=== PATIENT | female | born 1945 | race Caucasian/White ===

== ENCOUNTER 2019-01-09 07:32 | Inpatient (IN) | payer BC ==
[~2019-01-09] VITALS: Ht 165.1 cm; Wt 52.6 kg
[2019-01-09] MEDS ORDERED: IV NS 0.9% 1,000 ML BAG IV ONE (08:00)
[2019-01-09] MEDS ORDERED: ONDANSETRON HCL/PF 4 MG/2 ML VIAL IVP ONE (08:00)
[2019-01-09 08:02] LABS: BASOPHILS % (AUTO) 0.1 % (0.0-2.0); EOSINOPHILS % (AUTO) 0.1 % (0.0-6.0); HEMATOCRIT 43 % (33-45); HEMOGLOBIN 14.1 g/dL (11.5-14.8); LYMPHOCYTES # (AUTO) 0.2 /CMM (0.8-4.8); LYMPHOCYTES % (AUTO) 1.3 % (20.0-44.0); MEAN CORPUSCULAR HGB CONC 33 g/dl (31.0-36.0); MEAN CORPUSCULAR VOLUME 94 fL (82-100); MONOCYTES # (AUTO) 0.9 /CMM (0.1-1.30); NEUTROPHILS # (AUTO) 17.7 /CMM (1.8-8.9); NEUTROPHILS % (AUTO) 93.5 % (43.0-81.0); PLATELET COUNT (AUTO) 282 /CMM (150-450); RED BLOOD CELL COUNT(AUTO) 4.57 MIL/uL (4.0-5.2)
[2019-01-09 08:05] LABS: CALCIUM, SERUM 9.1 mg/dL (8.5-10.1); CARBON DIOXIDE 31 mmol/L (21-32); CHLORIDE 106 mmol/L (98-107); CREATININE 0.9 mg/dL (0.6-1.3); GLUCOSE 156 mg/dL (74-106); POTASSIUM 4.3 mmol/L (3.5-5.1); SODIUM SERUM 143 mmol/L (136-145); UREA NITROGEN, BLOOD 16 mg/dL (7-18)
[2019-01-09 08:11] LABS: ALANINE AMINOTRANSFERASE 33 U/L (12-78); ALBUMIN 3.8 g/dL (3.4-5.0); ALKALINE PHOSPHATASE 77 U/L (46-116); ASPARTATE AMINOTRANSFERASE 29 U/L (15-37); BILIRUBIN,DIRECT 0.1 mg/dL (0.0-0.2); BILIRUBIN,TOTAL 0.4 mg/dL (0.2-1.0); LIPASE 131 U/L (73-393); TOTAL PROTEIN, SERUM 7.3 g/dL (6.4-8.2)
--- NOTE | 2019-01-09 08:28 | NUR ---
PATIENT ARRIVED AT UNIT AMBULATORY. WITH C/O HAVING CONSTIPATION X 1 WEEK, REPORTED SHE TOOK STOOL SOFTENER AND HAD DIARRHEA X 2 DAYS SINCE THEN. A&O X 3, NO ACUTE DISTRESS. WILL CONTINUE TO MONITOR
[2019-01-09] MEDS ORDERED: FLAGYL/NS RTU 500 MG/100 ML PIGGYBACK IV ONE (08:30)
[2019-01-09] MEDS ORDERED: LEVOFLOXACIN 750 MG /D5W 150ML PIGGYBACK IV ONE (08:30)
[2019-01-09] MEDS ORDERED: ONDANSETRON HCL/PF 4 MG/2 ML VIAL ONE (08:44)
[2019-01-09] MEDS ORDERED: METRONIDAZOLE 500MG/ NS 100ML 100 ML IV ONE (08:51)
[2019-01-09] MEDS ORDERED: LEVOFLOXACIN 750 MG /D5W 150ML 150 ML IV ONE (08:51)
--- NOTE | 2019-01-09 09:03 | NUR ---
Paged Dr. To for admission
[2019-01-09] MEDS ORDERED: POLY17PO4 PO (09:06)
[2019-01-09] MEDS ORDERED: ASPI-1152 PO (09:06)
[2019-01-09] MEDS ORDERED: ATOR10TA PO (09:06)
[2019-01-09] MEDS ORDERED: CHOL100044 PO (09:06)
[2019-01-09] MEDS ORDERED: SENN-168 PO (09:06)
--- NOTE | 2019-01-09 09:33 | NUR ---
Paged Dr. To for admission
--- NOTE | 2019-01-09 10:06 | NUR ---
STOOL COLLECTED AND SENT TO LAB
--- NOTE | 2019-01-09 10:24 | NUR ---
PLACED CALL TO E2 AND SPOKE TO MERT LUQUE FOR [facility]
--- NOTE | 2019-01-09 10:42 | NUR ---
PATIENT TRANSFERRED TO [facility] BY [facility] VIA ACLS PROTOCOL. PATIENT ALERT AND OREITNED, NO ACUTE DISTRESS.
--- NOTE | 2019-01-09 10:50 | NUR ---
m/s delinquent account clerk: admission admitted this 73 yr old female pt from [facility] with dx: colitis, constipation, and sepsis. awake, a/ox4 with anxiousness. denies any psychiatric problems. c/o abdominal discomfort. oriented to room and surroundings. encouraged to verbalized feelings. sister at bedside. vss. instructed to call for assistance. will continue to monitor.
[2019-01-09 11:00] VITALS: BP 116/47
[2019-01-09] MEDS: ENOXAPARIN SODIUM 40 MG/0.4 ML DISP.SYRIN SQ SCH (11:30)
[2019-01-09] MEDS ORDERED: Z GUARD REMEDY 2 OZ OINT TP PRN (11:30)
[2019-01-09] MEDS ORDERED: ACETAMINOPHEN 325 MG TABLET PO PRN (11:30)
[2019-01-09] MEDS ORDERED: MAG HYDROX/AL HYDROX/SIMETH 30 ML UDC PO PRN (11:30)
[2019-01-09] MEDS ORDERED: MAGNESIUM HYDROXIDE 30 ML UDC PO PRN (11:30)
[2019-01-09] MEDS ORDERED: ONDANSETRON HCL/PF 4 MG/2 ML VIAL IVP PRN (11:30)
[2019-01-09] MEDS ORDERED: ZOLPIDEM TARTRATE 5 MG TABLET PO PRN (11:30)
[2019-01-09] MEDS ORDERED: HYDROCODONE/APAP 5/325MG 1 EACH TABLET PO PRN (11:30)
--- NOTE | 2019-01-09 12:00 | NUR ---
m/s manager group home: notes pt still with anxiousness. encourage to use the restroom for bowel and bladder, but pt wants to do it in her diaper, stated, "i don't have control at this time." sister remains at bedside. instructed to call for assistance. also offered bsc for bowel and bladder.
[2019-01-09] MEDS: LACTULOSE 10 G/15 ML UDC (PYXIS) PO SCH ×4 (12:05→23:35)
[2019-01-09] MEDS: IV NS 0.9% 1,000 ML IV PRN (12:13)
[2019-01-09] MEDS ORDERED: LEVOFLOXACIN 750 MG /D5W 150ML 750 MG in PREMIX 1 EA IV SCH (13:00)
[2019-01-09] MEDS: METRONIDAZOLE 500MG/ NS 100ML 500 MG in PREMIX 1 EA IV SCH ×3 (13:32→23:46)
--- NOTE | 2019-01-09 14:00 | NUR ---
m/s plaster and stucco worker: notes pt still uses diaper for bowel and bladder despite pt can ambulate without difficulty. incontinent care rendered by staff. encouraged to use bedside commode or the bathroom. sister remains at bedside. will continue to monitor.
--- NOTE | 2019-01-09 16:45 | NUR ---
m/s gas meter repair supervisor: gi consult seen and examined by ina (franklin) with orders. orders acknowledged.
[2019-01-09] MEDS ORDERED: POLYETHYLENE GLYCOL 3350 17 GM POWD.PACK PO PRN (17:00)
--- NOTE | 2019-01-09 18:35 | NUR ---
m/s plastics process hand: notes in bed awake and talking to her family at this time. needs attended. no distress noted. instructed to call for assistance. will continue to monitor.
--- NOTE | 2019-01-09 19:15 | NUR ---
m/s rn advanced: notes report given to erica (rn) for continuity of care.
--- NOTE | 2019-01-09 19:45 | NUR ---
RN NOTES RECEIVED PATIENT AWAKE, ALERT, RESTING COMFORTABLY IN BED, BREATHING EVEN AND NON LABORED, NO SIGNS OF ACUTE, RESPIRATORY DISTRESS NOTED, SAFETY MEASURES IN PLACED, ASPIRATION PRECAUTION OBSERVED, BED IN LOW LOCKED POSITION, IV ACCESS INTACT AND PATENT WITH NS AT 75 ML/HR INFUSING WELL, PATIENT ON CLEAR LIQUID DIET, ALL NEEDS ATTENDED, CALL LIGHT WITHIN EASY REACH, WILL CONTINUE TO MONITOR.
[2019-01-09 20:00] VITALS: BP 118/46
[2019-01-09 20:01] VITALS: BP 118/46
[2019-01-10] MEDS: LACTULOSE 10 G/15 ML UDC (PYXIS) PO SCH ×4 (05:08→23:14)
[2019-01-10] MEDS: METRONIDAZOLE 500MG/ NS 100ML 500 MG in PREMIX 1 EA IV SCH ×4 (05:09→23:13)
--- NOTE | 2019-01-10 05:29 | NUR ---
RN NOTES PATIENT HAD 10 X SMALL, PASTY, SOFT BROWN FREQUENT BOWEL MOVEMENT SINCE THE BEGINNING OF THE SHIFT, USING BEDSIDE COMMODE, ASSISTED FOR SAFETY, ABLE TO REST WITH SHORT INTERVALS, PATIENT IS RESTING AT THIS TIME, DUE MEDS GIVEN, ALL NEEDS ATTENDED, WILL CONTINUE TO MONITOR.
[2019-01-10] MEDS: IV NS 0.9% 1,000 ML IV PRN (06:51)
--- NOTE | 2019-01-10 06:52 | NUR ---
RN NOTES ALL NEEDS ATTENDED AND MET, KEPT CLEAN AND DRY AND COMFORTABLE, ASSISTED TO BEDSIDE COMMODE X 11, FOR SOFT PASTY SMALL TO MEDIUM BOWEL MOVEMENT, SAFETY MEASURES IN PLACED, WILL ENDORSE TO AM NURSE FOR CONTINUITY OF CARE.
--- NOTE | 2019-01-10 07:15 | NUR ---
Lenin RN opening notes Received PT from night nurse. PT is alert and oriented X4. PT complaining of headache. Offered medication for the headache but PT refused. NO pain other than the headache. Respiration is equal, clear and unlabored. IV at R Forearm gauge# 22 intact and infusing well NS 75ml/hr. PT just had a bowel movement. Bed at low position and call light is within reach. Will continue to monitor.
[2019-01-10 07:28] LABS: BASOPHILS % (AUTO) 0.3 % (0.0-2.0); EOSINOPHILS % (AUTO) 0.2 % (0.0-6.0); HEMATOCRIT 39 % (33-45); HEMOGLOBIN 12.7 g/dL (11.5-14.8); LYMPHOCYTES % (AUTO) 8.4 % (20.0-44.0); MEAN CORPUSCULAR HGB CONC 33 g/dl (31.0-36.0); MEAN CORPUSCULAR VOLUME 92 fL (82-100); MONOCYTES # (AUTO) 0.8 /CMM (0.1-1.30); MONOCYTES % (AUTO) 6.8 % (2.0-12.0); NEUTROPHILS % (AUTO) 84.3 % (43.0-81.0); PLATELET COUNT (AUTO) 228 /CMM (150-450); RED BLOOD CELL COUNT(AUTO) 4.18 MIL/uL (4.0-5.2); WHITE BLOOD COUNT (AUTO) 11.8 K/uL (4.3-11.0)
[2019-01-10 07:49] LABS: CALCIUM, SERUM 8.9 mg/dL (8.5-10.1); CARBON DIOXIDE 27 mmol/L (21-32); CHLORIDE 109 mmol/L (98-107); CREATININE 0.8 mg/dL (0.6-1.3); GLUCOSE 113 mg/dL (74-106); MAGNESIUM 2.1 mg/dL (1.8-2.4); PHOSPHORUS 2.8 mg/dL (2.5-4.9); POTASSIUM 3.7 mmol/L (3.5-5.1); SODIUM SERUM 145 mmol/L (136-145); UREA NITROGEN, BLOOD 6 mg/dL (7-18)
[2019-01-10 07:57] LABS: CHOLESTEROL 120 mg/dL (<200); HDL CHOLESTEROL 65 mg/dL (40-60); LDL 49 mg/dL (0-99); THYROID STIMULATING HORMONE 5.801 uIU/mL (0.358-3.74); TRIGLYCERIDES 22 mg/dL (30-150)
[2019-01-10 08:00] VITALS: BP 129/55
[2019-01-10] MEDS: PANTOPRAZOLE 40 MG TABLET.DR PO SCH (08:39)
[2019-01-10] MEDS: ATORVASTATIN 10 MG TABLET PO SCH (08:39)
[2019-01-10] MEDS: ASPIRIN EC 81 MG TABLET.DR PO SCH (08:39)
[2019-01-10] MEDS: ENOXAPARIN SODIUM 40 MG/0.4 ML DISP.SYRIN SQ SCH (08:39)
[2019-01-10] MEDS: CHOLECALCIFEROL 1,000 UNIT TABLET (VIT D3) PO SCH (08:40)
--- NOTE | 2019-01-10 08:55 | NUR ---
NOÉ medsurg notes Pt complaining of headache. Gave acetaminophen for headache. Will continue to monitor
[2019-01-10] MEDS ORDERED: IV NS 0.9% 1,000 ML IV STA (10:10)
--- NOTE | 2019-01-10 13:00 | NUR ---
RN MS NOTES PT IN BED, AWAKE, ALERT AND ORIENTED, NO COMPLAINT OF PAIN, NOT IN DISTRESS, SEEN BY DR. ROBERTO AND ISAMAR LEADLIGHTER, PLAN OF CARE DISCUSSED WITH PT, VERBALIZED UNDERSTANDING, CALL LIGHT WITHIN REACH, ASSISTED WITH TOILETING NEEDS.
[2019-01-10 16:00] VITALS: BP 119/59
--- NOTE | 2019-01-10 18:45 | NUR ---
RN medsurg notes Pt is alert and oriented X4. Pt is resting in bed comfortably. PT denies any pain or discomfort at this time. No vomiting or nausea. PT has episode of BM 6 times, small brown pasty stool. NO SOB. Meds have been given and assist all needs. Pt on clear liquid. Safety precautions is maintained. IV is intact and infusing well. Informed PT about plan of care. PT and pt's family verbalize understanding. Pt family at the bed side. Will endorse to night nurse.
--- NOTE | 2019-01-10 19:00 | NUR ---
MS RN NOTES RECEIVED PT IN BED AWAKE AND ABLE TO MAKE NEEDS KNOWN WITH FAMILY AT BEDSIDE. PT A/O X3. RESPIRATIONS EVEN AND UNLABORED WITH NO S/S OF ACUTE DISTRESS OR SOB NOTED. NO COMPLAINTS OF PAIN AT THIS TIME. RFA #22G RUNNING NS @125ML/HR, PATENT AND INTACT WITH NO S/S OF INFILTRATION NOTED. CALL LIGHT WITHIN REACH. WILL CONTINUE TO MONITOR.
[2019-01-10 20:00] VITALS: BP 136/59
[2019-01-10] MEDS ORDERED: PEG 3350/NA SULF,BICARB,CL/KCL 4,000 ML BOTTLE PO ONE (21:30)
[2019-01-10] MEDS ORDERED: PEG 3350/NA SULF,BICARB,CL/KCL 4,000 ML BOTTLE ONE (22:04)
[2019-01-11] MEDS: IV NS 0.9% 1,000 ML IV PRN (03:47)
[2019-01-11] MEDS: LACTULOSE 10 G/15 ML UDC (PYXIS) PO SCH ×4 (04:53→23:33)
[2019-01-11] MEDS: METRONIDAZOLE 500MG/ NS 100ML 500 MG in PREMIX 1 EA IV SCH ×4 (05:16→23:40)
[2019-01-11 06:35] LABS: BASOPHILS % (AUTO) 0.5 % (0.0-2.0); EOSINOPHILS % (AUTO) 0.9 % (0.0-6.0); HEMATOCRIT 35 % (33-45); HEMOGLOBIN 11.6 g/dL (11.5-14.8); LYMPHOCYTES # (AUTO) 0.9 /CMM (0.8-4.8); LYMPHOCYTES % (AUTO) 13.1 % (20.0-44.0); MEAN CORPUSCULAR HGB CONC 34 g/dl (31.0-36.0); MEAN CORPUSCULAR VOLUME 93 fL (82-100); MONOCYTES # (AUTO) 0.9 /CMM (0.1-1.30); MONOCYTES % (AUTO) 12.9 % (2.0-12.0); NEUTROPHILS # (AUTO) 4.8 /CMM (1.8-8.9); NEUTROPHILS % (AUTO) 72.6 % (43.0-81.0); PLATELET COUNT (AUTO) 203 /CMM (150-450); RED BLOOD CELL COUNT(AUTO) 3.73 MIL/uL (4.0-5.2); WHITE BLOOD COUNT (AUTO) 6.6 K/uL (4.3-11.0)
[2019-01-11 07:20] LABS: CALCIUM, SERUM 8.4 mg/dL (8.5-10.1); CARBON DIOXIDE 25 mmol/L (21-32); CHLORIDE 108 mmol/L (98-107); CREATININE 0.6 mg/dL (0.6-1.3); GLUCOSE 88 mg/dL (74-106); MAGNESIUM 1.8 mg/dL (1.8-2.4); PHOSPHORUS 2.2 mg/dL (2.5-4.9); POTASSIUM 3.3 mmol/L (3.5-5.1); SODIUM SERUM 141 mmol/L (136-145); UREA NITROGEN, BLOOD 3 mg/dL (7-18)
--- NOTE | 2019-01-11 07:33 | NUR ---
MS RN NOTES PT IN BED AWAKE AND ABLE TO MAKE NEEDS KNOWN. PT A/O X3. RESPIRATIONS EVEN AND UNLABORED WITH NO S/S OF ACUTE DISTRESS OR SOB NOTED THROUGHOUT SHIFT. NO COMPLAINTS OF PAIN AT THIS TIME. LHAND #22G RUNNING NS @125ML/HR, PATENT AND INTACT WITH NO S/S OF INFILTRATION NOTED. PT KEPT CLEAN, DRY, AND COMFORTABLE. SAFETY MEASURES IN PLACE WITH BED IN LOWEST LOCKED POSITION WITH SIDE RAILS UP X2. CALL LIGHT WITHIN REACH. WILL ENDORSE TO ON COMING NURSE FOR [facility].
[2019-01-11 08:00] VITALS: BP 115/51
[2019-01-11] MEDS: ENOXAPARIN SODIUM 40 MG/0.4 ML DISP.SYRIN SQ SCH (09:07)
[2019-01-11] MEDS: CHOLECALCIFEROL 1,000 UNIT TABLET (VIT D3) PO SCH (09:08)
[2019-01-11] MEDS: PANTOPRAZOLE 40 MG TABLET.DR PO SCH (09:08)
[2019-01-11] MEDS: ASPIRIN EC 81 MG TABLET.DR PO SCH (09:08)
[2019-01-11] MEDS: ATORVASTATIN 10 MG TABLET PO SCH (09:08)
[2019-01-11] MEDS ORDERED: POTASSIUM CHLORIDE 20 MEQ POWDER PACKET PO SCH (09:30)
--- NOTE | 2019-01-11 09:30 | NUR ---
RN MS NOTES UNABLE TO ADMINISTER KLOR-CON, MED REORDERED.
[2019-01-11] MEDS ORDERED: LEVOFLOXACIN 750 MG /D5W 150ML 750 MG in PREMIX 1 EA IV SCH (10:00)
--- NOTE | 2019-01-11 11:31 | NUR ---
NOÉ CRAFT NOTES THE MEDIC TECHNICIAN ALESIA CAME TO SEE THE PT AND INFORMED THE PT THE IMPORTANT OF ADDING FIBER INTO HER DIET AND STARTS EATING HEALTHY TO PREVENT CONSTIPATION.
[2019-01-11] MEDS ORDERED: POTASSIUM CHLORIDE 20 MEQ POWDER PACKET PO ONE (12:00)
[2019-01-11] MEDS ORDERED: K PHOS NEUTRAL 250 MG TABLET PO ONE (13:30)
--- NOTE | 2019-01-11 13:32 | NUR ---
Lenin UMANZOR notes Thania Davis, MAINSPRING STRIP INSPECTOR came to see the pt. The MAINSPRING STRIP INSPECTOR informed about plan of care and the disease process. MAINSPRING STRIP INSPECTOR also spoke with pt's son by phone. PT and pt's son verbalize understanding.
--- NOTE | 2019-01-11 14:00 | NUR ---
Lenin UMANZOR notes Dr. Espinoza spoke with the PT about plan of care. MD informed the PT to have colonoscopy done as an outpatient. PT and family's verbalize understanding.
[2019-01-11 16:00] VITALS: BP 139/54
--- NOTE | 2019-01-11 18:39 | NUR ---
Medsurg RN notes Pt is alert and oriented X4. Pt is resting in bed comfortably. PT denies any pain or discomfort at this time. No vomiting or nausea. NO SOB. PT still having bowel movement several times thru out the shift. MD aware of that. Meds have been given and assist all needs. Pt on clear liquid. IV is on left hand intact and infusing well. Informed PT about plan of care and explained about medications purposes. PT verbalize understanding. Safety precautions is maintained. Bed at low position and call light within reach. Will endorse to night nurse.
[2019-01-11 20:00] VITALS: BP 126/54
--- NOTE | 2019-01-11 20:00 | NUR ---
MS/RN OPENING NOTES RECEIVED PATIENT IN BED, AWAKE, ALERT X2, SKIN WARM TO TOUCH, CAN FOLLOW SIMPLE COMMANDS BUT REQUIRE FREQUENT REORIENTATION. DISCUSSED PLAN OF CARE AND VERBALIZE UNDERSTANDING, MONITORED AND TO COLLECT STOOL SAMPLE FOR OVA PARASITE, BED LOCKED, CALL LIGHTS WITHIN REACH. WILL MONITOR.
[2019-01-11 20:16] VITALS: BP 126/54
[2019-01-12] MEDS: LACTULOSE 10 G/15 ML UDC (PYXIS) PO SCH ×2 (05:28→11:30)
[2019-01-12] MEDS: METRONIDAZOLE 500MG/ NS 100ML 500 MG in PREMIX 1 EA IV SCH (05:28)
[2019-01-12] MEDS: IV NS 0.9% 1,000 ML IV PRN (05:55)
--- NOTE | 2019-01-12 06:37 | NUR ---
321-1 MS/RN NOTES PATIENT ABLE TO SLEEP INTERMITENTLY, AWAKE, ABLE TO VERBALIZE NEED, USES BED SIDE COMMODE, BED LOCKED, CALL LIGHTS WITHIN REACH. WILL MONITOR.
[2019-01-12 06:45] LABS: CALCIUM, SERUM 8.2 mg/dL (8.5-10.1); CARBON DIOXIDE 22 mmol/L (21-32); CHLORIDE 108 mmol/L (98-107); CREATININE 0.6 mg/dL (0.6-1.3); GLUCOSE 87 mg/dL (74-106); MAGNESIUM 1.7 mg/dL (1.8-2.4); POTASSIUM 3.3 mmol/L (3.5-5.1); SODIUM SERUM 143 mmol/L (136-145); UREA NITROGEN, BLOOD 4 mg/dL (7-18)
[2019-01-12 06:46] LABS: BASOPHILS % (AUTO) 0.6 % (0.0-2.0); EOSINOPHILS % (AUTO) 1.3 % (0.0-6.0); HEMATOCRIT 36 % (33-45); HEMOGLOBIN 12.1 g/dL (11.5-14.8); LYMPHOCYTES # (AUTO) 0.9 /CMM (0.8-4.8); LYMPHOCYTES % (AUTO) 16.8 % (20.0-44.0); MEAN CORPUSCULAR HGB CONC 33 g/dl (31.0-36.0); MEAN CORPUSCULAR VOLUME 92 fL (82-100); MONOCYTES # (AUTO) 0.6 /CMM (0.1-1.30); MONOCYTES % (AUTO) 10.3 % (2.0-12.0); PLATELET COUNT (AUTO) 231 /CMM (150-450); RED BLOOD CELL COUNT(AUTO) 3.93 MIL/uL (4.0-5.2); WHITE BLOOD COUNT (AUTO) 5.6 K/uL (4.3-11.0)
--- NOTE | 2019-01-12 07:40 | NUR ---
MS RN OPENING NOTES RECEIVED PT LAYING IN BED WITH HOB ELEVATED. PT IS A/O X3, AFEBRILE. RESPIRATIONS ARE EVEN AND UNLABORED, NOT IN ANY ACUTE DISTRESS NOTED. PT DENIES ANY PAIN AT THIS TIME, NO C/O SOB, N/V. IV SITE TO LEFT HAND INTACT, NO INFILTRATION NOTED. DRESSING KEPT CLEAN AND DRY. SAFETY MEASURES ARE IN PLACE. INSTRUCTED PT TO USE CALL LIGHT WHEN ASSISTANCE IS NEEDED, CALL LIGHT IS LEFT WITHIN REACH.
[2019-01-12 08:00] VITALS: BP 131/48
--- NOTE | 2019-01-12 08:00 | NUR ---
MS RN NOTES-- PT ASSIGNED TO NOÉ EDMONDS. BEDSIDE ENDORSEMENT GIVEN FOR CONTINUITY OF CARE.
[2019-01-12] MEDS ORDERED: PSYL0.4C2 PO (08:38)
[2019-01-12] MEDS: PANTOPRAZOLE 40 MG TABLET.DR PO SCH (08:41)
[2019-01-12] MEDS: CHOLECALCIFEROL 1,000 UNIT TABLET (VIT D3) PO SCH (08:41)
[2019-01-12] MEDS: ASPIRIN EC 81 MG TABLET.DR PO SCH (08:41)
[2019-01-12] MEDS: ATORVASTATIN 10 MG TABLET PO SCH (08:42)
[2019-01-12] MEDS: ENOXAPARIN SODIUM 40 MG/0.4 ML DISP.SYRIN SQ SCH (08:42)
--- NOTE | 2019-01-12 08:45 | NUR ---
MS RN NOTES-- RECEIVED REPORT FROM NOÉ EDMONDS FOR CONTINUITY OF CARE.
[2019-01-12] MEDS ORDERED: POTASSIUM CHLORIDE 20 MEQ TAB.PRT.SR PO SCH (10:30)
--- NOTE | 2019-01-12 11:15 | NUR ---
MS RN NOTES-- PT IS AWARE ABOUT LEAVING SHE WAS TOLD BY JOAN PENN SHE WILL BE DISCHARGED TODAY. PER PT, I WILL WAIT FOR THE DISCHARGE SUMMARY. PT WAS ADAMANT ABOUT WANTING TO TAKE PERIPHERAL IV OUT. EXPLAINED IV WILL BE TAKEN OUT PRIOR TO LEAVING AND PT STATED "NO, JUST TAKE IT OUT." MAGNESIUM WAS ORDERED AND INFORMED PT THAT A NEW PERIPHERAL NEEDS TO BE INSERTED. PT AGREED FOR A NEW PERIPHERAL IV AND TO INFUSE MAGNESIUM. NEW PERIPHERAL IV INSERTED TO LFA G22. TOLERATED WELL. WILL CONTINUE TO MONITOR.
[2019-01-12] MEDS: Magnesium 1GM/D5W 100ML PREMIX 100 ML IV SCH ×2 (11:19→12:10)
--- NOTE | 2019-01-12 13:34 | NUR ---
MS SPONGE CLIPPER NOTE PT DISCHARGED TO HOME ACCOMPANIED BY SISTER PEDRO. PT IS A/O X3, AFEBRILE. RESPIRATIONS ARE EVEN AND UNLABORED, NOT IN ANY ACUTE DISTRESS NOTED. PT DENIES ANY PAIN, SOB, N/V. PUPILS REACTIVE TO LIGHT, BILATERAL HAND PEANUT SEPARATOR ARE STRONG AND EQUAL. PT IS AMBULATORY AND CONTINENT. ABDOMEN IS SOFT AND NONDISTENDED, BOWEL SOUNDS ARE PRESENT IN ALL 4 QUADRANTS UPON AUSCULTATION. NO BM THIS AM. DENIES ANY BLADDER DISCOMFORT. SKIN IS INTACT, NO OPEN AREAS NOTED. KEPT CLEAN AND DRY. IV ACCESS REMOVED, APPLIED PRESSURE AND TOLERATED WELL. ID BANDS REMOVED. PT ABLE TO DRESS SELF. EXPLAINED DISCHARGE PAPERWORK TO PT AND SISTER WITH VERBAL AND WRITTEN UNDERSTANDING. ALL BELONGINGS SENT WITH PT. ACCOMPANIED BY WITH 1 STAFF ASSIST TO PERSONAL VEHICLE. PT LEFT IN STABLE CONDITION.
== END 2019-01-12 14:30 | disposition home or self-care (01) | DRG 394 ==
LOC: ER 07:34 → TELE 10:04 → MED 11:05
PROVIDERS: ATTEND Registered Nurse
DX: K62.6 Ulcer of anus and rectum (principal); E87.2 Acidosis; K59.09 Other constipation; Z88.0 Allergy status to penicillin; K52.9 Noninfective gastroenteritis and colitis, unspecified; E86.0 Dehydration; E78.5 Hyperlipidemia, unspecified; Z98.890 Other specified postprocedural states; Z79.82 Long term (current) use of aspirin; Z79.899 Other long term (current) drug therapy; R73.9 Hyperglycemia, unspecified
CPT/HCPCS: 36415; 74021; 80048-TC; 80061-TC; 80076-TC; 83605-TC; 83690-TC; 83735-TC; 84100-TC; 84443-TC; 85025-TC; 87045-TC; 87081-TC; 87177; 87209; 89055; 97116-TC; A4216; G0378; J1650; J1956; J2405; J3475; J3490; J7030

== ENCOUNTER 2020-06-28 08:33 | Inpatient (IN) | payer BC ==
[~2020-06-28] VITALS: Ht 162.6 cm; Wt 46.3 kg
[~2020-06-28 08:33] MED LIST: ASPI-1420 PO; ATOR10TA PO; CHOL100044 PO; POLY17PO4 PO; PSYL0.4C2 PO; SORBITOL SOLUTION 30 ML PO ONE
--- NOTE | 2020-06-28 08:35 | NUR ---
ER BED 4 PT GEN FROM HOME C/O RECTAL BLEDDING, DAUGHTER CALLED THE AMBULANCE BECAUSE THEY SAW BLOOD IN HER STOOL. VS CHECKED. AWAITING MD KNOWLES.
[2020-06-28] MEDS: IV NS 0.9% 1,000 ML BAG IV ONE ×2 (08:59→09:00)
[2020-06-28 09:16] LABS: BASOPHILS % (AUTO) 0.5 % (0.0-2.0); EOSINOPHILS % (AUTO) 0.7 % (0.0-6.0); HEMATOCRIT 45 % (33-45); HEMOGLOBIN 14.7 g/dL (11.5-14.8); LYMPHOCYTES # (AUTO) 0.6 /CMM (0.8-4.8); MEAN CORPUSCULAR HGB CONC 33 g/dl (31.0-36.0); MEAN CORPUSCULAR VOLUME 93 fL (82-100); MONOCYTES # (AUTO) 0.5 /CMM (0.1-1.30); MONOCYTES % (AUTO) 6.7 % (2.0-12.0); NEUTROPHILS # (AUTO) 5.8 /CMM (1.8-8.9); NEUTROPHILS % (AUTO) 83.1 % (43.0-81.0); PLATELET COUNT (AUTO) 245 /CMM (150-450); RED BLOOD CELL COUNT(AUTO) 4.87 MIL/uL (4.0-5.2)
[2020-06-28 09:23] LABS: CALCIUM, SERUM 9.3 mg/dL (8.5-10.1); CREATININE 0.8 mg/dL (0.6-1.3); POTASSIUM 3.5 mmol/L (3.5-5.1)
[2020-06-28 09:29] LABS: ALBUMIN 3.7 g/dL (3.4-5.0); BILIRUBIN,DIRECT 0.1 mg/dL (0.0-0.2); BILIRUBIN,TOTAL 0.7 mg/dL (0.2-1.0); TOTAL PROTEIN, SERUM 7.7 g/dL (6.4-8.2)
--- NOTE | 2020-06-28 09:37 | NUR ---
COVID TEST DONE. SENT TO LAB
[2020-06-28] MEDS ORDERED: LEVO25TA9 PO (09:45)
[2020-06-28] MEDS ORDERED: MEMA10TA56 PO (09:45)
--- NOTE | 2020-06-28 09:46 | NUR ---
EPIC CALLED PANEL PAGED.
--- NOTE | 2020-06-28 09:58 | NUR ---
PT SEEN BY [facility] DOCTOR DR. LOPEZ
--- NOTE | 2020-06-28 10:00 | NUR ---
REPORT GIVEN TO KAROLINE UMANZOR AT [facility] FOR [facility].
[2020-06-28] MEDS ORDERED: IV NS 0.9% 1,000 ML IV PRN (10:30)
[2020-06-28] MEDS ORDERED: ONDANSETRON HCL/PF 4 MG/2 ML VIAL IVP PRN (10:30)
[2020-06-28] MEDS ORDERED: Z GUARD REMEDY 2 OZ OINT TP PRN (10:30)
[2020-06-28] MEDS ORDERED: HYDROCODONE/APAP 5/325MG TABLET PO PRN (10:30)
[2020-06-28] MEDS ORDERED: TEMAZEPAM 15 MG CAPSULE PO PRN (10:30)
[2020-06-28] MEDS ORDERED: MORPHINE SULFATE INJ 2 MG/ML DISP.SYRIN IV PRN (10:30)
[2020-06-28] MEDS ORDERED: ACETAMINOPHEN 325 MG TABLET PO PRN (10:30)
[2020-06-28] MEDS ORDERED: HYDROMORPHONE INJ 2 MG/ML DISP.SYRIN IV PRN (10:30)
--- NOTE | 2020-06-28 10:48 | NUR ---
GOT BED 304-1
[2020-06-28 11:00] VITALS: BP 149/58
[2020-06-28] MEDS ORDERED: TEMAZEPAM 7.5 MG CAPSULE PO PRN (11:00)
--- NOTE | 2020-06-28 11:12 | NUR ---
ERROR MADE WITH DEPARTING PT. PT WAS ACTUALLY ADMITTED INPATIENT. TO ROOM 304-1
[2020-06-28 11:15] VITALS: BP 149/58
[2020-06-28] MEDS: PANTOPRAZOLE 40 MG VIAL IV SCH ×2 (11:43→21:12)
--- NOTE | 2020-06-28 12:30 | NUR ---
MS RN ADMITTING NOTES PT ADMITTED TO UNIT [facility]IA [facility] @ 1100 ACCOMPANIED BY JONI. REPORT GIVEN VIA PHONE BY NOÉ NICHOLAS. A/O X2. VERBALLY RESPONSIVE, DENIES PAIN OR ANY DISCOMFORTS AT THIS TIME. PT FORGETFUL AND CONFUSED, ORIENTED TO STAFF AND ROOM. V/S TAKEN, STABLE AND RECORDED. PT WITH DX OF GI BLEED, BRIGHT RED BLOOD PER RECTUM BUT NO NOTED BLEEDING ON RECTUM AT THIS TIME. PT ON ROOM AIR, BREATHING EVEN AND UNLABORED, NO SOB NOTED. PHOTOS OF SKIN ISSUES TAKEN AND FILED IN CHART. PT WITH IV ACCESS ON RAC G#20, INTACT, PATENT AND FLUSHES WELL. IVF OF NS @ 75ML/HR STARTED. SAFETY MEASURES INITIATED: BED PLACED IN LOWEST LOCKED POSITION WITH SR UP X2. CALL LIGHT PLACED WITHIN EASY REACH OF PT. MATILDE LOPEZ ON UNIT AND AWARE OF PT'S ADMISSION AND ORDERS MADE. WILL CONTINUE TO MONITOR PT ACCORDINGLY.
[2020-06-28 16:00] VITALS: BP 129/63
[2020-06-28] MEDS ORDERED: PEG 3350/NA SULF,BICARB,CL/KCL 4,000 ML BOTTLE PO ONE (16:00)
--- NOTE | 2020-06-28 17:26 | NUR ---
RN NOTES RECEIVED RESULTS OF PT'S COLONOSCOPY FROM [facility] THAT WAS DONE 06/2019. DR ROBERTO WAS INFORMED OF RESULTS. DR ROBERTO SAID TO START TO PREP PT FOR COLONOSCOPY FOR TOMORROW INCASE PT WILL NEED IT AND FAMILY WILL CONSENT TO THE PROCEDURE. DANIELITO STARTED AND PT NPO TONIGHT. I TALKED TO PT'S SON ON THE PHONE AND INFORMED OF DR ROBERTO'S PLAN OF CARE AND AGREED WITH THE PLAN. WILL ENDORSE TO TIP CEMENTER NURSE TO ENDORSE TOMORROW TO DAY RN TO F/U WITH DR ROBERTO IF HE WILL DO THE COLONOSCOPY. INCASE HE WILL DO THE PROCEDURE, RN SHOULD CALL SON LEONIDAS SHORT AT [facility] #[phone] TO OBTAIN CONSENT.
--- NOTE | 2020-06-28 18:58 | NUR ---
MS RN CLOSING NOTES PT IN BED AWAKE WATCHING TV. A/O X2-3. VERBALLY RESPONSIVE. FORGETFUL AND CONFUSED. PT FOR POSSIBLE COLONOSCOPY TOMORROW. NPO EXCEPT MEDS ENFORCED PERMD ORDER. ON ROOM AIR, BREATHING EVEN AND UNLABORED, NO SOB NOTED. IV ACCESS ON RAC G#20, INTACT, PATENT AND FLUSHES WELL. IVF OF NS @ 75ML/HR INFUSING WELL. ALL NEEDS AND CARE PROVIDED WELL. SAFETY MEASURES KEPT IN PACE: BED IN LOWEST LOCKED POSITION WITH SR UP X2. CALL LIGHT WITHIN EASY REACH OF PT. WILL ENDORSE TO WINDING LATHE OPERATOR NURSE FOR [facility]..
--- NOTE | 2020-06-28 19:30 | NUR ---
MS/RN OPENING NOTES RECEIVED PATIENT IN BED RESTING. PATIENT IS ALERT AND ORIENTED X 2, FORGETFUL AND CONFUSED. NO SIGNS OF SOB OR RESPIRATORY DISTRESS NOTED. PATIENTS BREATHING IS EVEN AND UNLABORED. PATIENT STATES NO PAIN AT THIS TIME. PATIENT IS NPO EXCEPT MEDS. PATIENT HAS IV ACCESS ON RIGHT AC #20G RUNNING NS AT 75 ML/HR. PATIENT HAS BSC AND CAN STAND WITH ASSIST. SAFETY MEASURES ARE IN PLACE, BED IS LOCKED AND PLACED IN THE LOW POSITION, SIDE RAILS UP X 3, BED ALARM ON. CALL LIGHT IS WITHIN REACH. WILL CONTINUE TO MONITOR THROUGH OUT SHIFT.
[2020-06-28 20:00] VITALS: BP 126/65
[2020-06-28 20:28] LABS: BASOPHILS % (AUTO) 0.6 % (0.0-2.0); EOSINOPHILS % (AUTO) 0.5 % (0.0-6.0); HEMATOCRIT 40 % (33-45); HEMOGLOBIN 13.1 g/dL (11.5-14.8); LYMPHOCYTES # (AUTO) 0.9 /CMM (0.8-4.8); LYMPHOCYTES % (AUTO) 11.6 % (20.0-44.0); MEAN CORPUSCULAR HGB CONC 33 g/dl (31.0-36.0); MEAN CORPUSCULAR VOLUME 93 fL (82-100); MONOCYTES # (AUTO) 0.7 /CMM (0.1-1.30); MONOCYTES % (AUTO) 8.8 % (2.0-12.0); NEUTROPHILS # (AUTO) 6.1 /CMM (1.8-8.9); NEUTROPHILS % (AUTO) 78.5 % (43.0-81.0); PLATELET COUNT (AUTO) 231 /CMM (150-450); RED BLOOD CELL COUNT(AUTO) 4.31 MIL/uL (4.0-5.2); WHITE BLOOD COUNT (AUTO) 7.7 K/uL (4.3-11.0)
--- NOTE | 2020-06-29 02:50 | NUR ---
MS/RN NOTES PATIENT HAD SMALL BM, BROWN LIQUID CONSISTENCY. NO SIGNS OF BLEEDING. NO BLOOD NOTED ON STOOL OR ANUS. WILL CONTINUE TO MONITOR.
--- NOTE | 2020-06-29 03:30 | NUR ---
MS/RN NOTES SORBITOL SOLUTION 120 ML PO NOT IN STOCK ON UNIT. FAXED ORDERED OVER TO [facility] N[facility]ITION[facility] FOR MEDIATION. WILL FOLLOW UP WITH ORDER.
[2020-06-29] MEDS ORDERED: SORBITOL SOLUTION 30 ML ONE ×2 (04:58→05:08)
[2020-06-29] MEDS ORDERED: SORBITOL SOLUTION 30 ML PO ONE (06:00)
--- NOTE | 2020-06-29 06:10 | NUR ---
MS/RN NOTES CALLED PATIENTS SON LEONIDAS BENJAMIN FOR CONSENT OF COLONOSCOPY. NO ANSER, MESSAGE LEFT WITH CALL BACK NUMBER.
[2020-06-29 06:47] LABS: BASOPHILS % (AUTO) 0.7 % (0.0-2.0); EOSINOPHILS % (AUTO) 1.8 % (0.0-6.0); HEMATOCRIT 41 % (33-45); HEMOGLOBIN 13.6 g/dL (11.5-14.8); LYMPHOCYTES # (AUTO) 0.7 /CMM (0.8-4.8); LYMPHOCYTES % (AUTO) 13.3 % (20.0-44.0); MEAN CORPUSCULAR HGB CONC 34 g/dl (31.0-36.0); MEAN CORPUSCULAR VOLUME 92 fL (82-100); MONOCYTES # (AUTO) 0.6 /CMM (0.1-1.30); MONOCYTES % (AUTO) 10.3 % (2.0-12.0); NEUTROPHILS # (AUTO) 4.1 /CMM (1.8-8.9); NEUTROPHILS % (AUTO) 73.9 % (43.0-81.0); PLATELET COUNT (AUTO) 224 /CMM (150-450); RED BLOOD CELL COUNT(AUTO) 4.41 MIL/uL (4.0-5.2); WHITE BLOOD COUNT (AUTO) 5.5 K/uL (4.3-11.0)
[2020-06-29 06:55] LABS: CALCIUM, SERUM 8.8 mg/dL (8.5-10.1); CARBON DIOXIDE 26 mmol/L (21-32); CHLORIDE 105 mmol/L (98-107); CREATININE 0.5 mg/dL (0.6-1.3); GLUCOSE 87 mg/dL (74-106); PHOSPHORUS 2.5 mg/dL (2.5-4.9); POTASSIUM 3.8 mmol/L (3.5-5.1); SODIUM SERUM 140 mmol/L (136-145); UREA NITROGEN, BLOOD 6 mg/dL (7-18)
--- NOTE | 2020-06-29 07:00 | NUR ---
MS/RN CLOSING NOTES PATIENT IN BED RESTING. PATIENT IS ALERT AND ORIENTED X 2, FORGETFUL AND CONFUSED. NO SIGNS OF SOB OR RESPIRATORY DISTRESS NOTED. PATIENTS BREATHING IS EVEN AND UNLABORED. PATIENT IS NPO EXCEPT MEDS. PATIENT HAS IV ACCESS ON RIGHT AC #20G RUNNING NS AT 75 ML/HR. PATIENT HAS BSC AND CAN STAND WITH ASSIST. PATIENT HAD 3 BM DURING SHIFT, NO SIGNS OF BLEEDING. ALL NEED HAVE BEEN MET. SAFETY MEASURES ARE IN PLACE, BED IS LOCKED AND PLACED IN THE LOW POSITION, SIDE RAILS UP X 3, BED ALARM ON. CALL LIGHT IS WITHIN REACH. WILL ENDORSE CARE TO DAY SHIFT.
[2020-06-29 07:04] LABS: CHOLESTEROL 153 mg/dL (<200); HDL CHOLESTEROL 57 mg/dL (40-60); LDL 83 mg/dL (0-99); THYROID STIMULATING HORMONE 1.973 uIU/mL (0.358-3.74); TRIGLYCERIDES 41 mg/dL (30-150)
--- NOTE | 2020-06-29 07:10 | NUR ---
RN OPENING NOTE: Received patient in bed. Awake, alert and oriented x1. Confusion noted, per patient hx, patient has dementia. Able to communicate and make needs known. On room air @ 98%. No SOB and not in respiratory distress. IV site clean, dry, patent and intact. Ns @ 75mls/hr being tolerated well. No pain noted nor reported. Currently NPO except meds for planned colonoscopy. Golytely noted to be consumed at approximately 55%, patient refused further intake due to not liking the taste. Consent forms to be completed later on shift. Bowel movement noted by dictating transcribing machine servicer with no more bloody stools reported. Call light in reach. Bed locked, low and at semi lester's position. Side rails up x3. Safety ensured and observed. Will continue to monitor.
[2020-06-29 08:00] VITALS: BP 133/75
[2020-06-29] MEDS: PANTOPRAZOLE 40 MG VIAL IV SCH ×2 (09:00→20:19)
--- NOTE | 2020-06-29 10:00 | NUR ---
RN NOTE: Telephone consent obtained for planned Colonoscopy, Use of anesthesia and Blood Transfusion for patient from Gibson Coellotz (Son) with NOÉ Jean-Baptiste witness.
[2020-06-29] MEDS ORDERED: FENTANYL PF 100MCG/2ML AMPUL ONE (11:16)
--- NOTE | 2020-06-29 12:00 | NUR ---
RN NOTE: spoke to Charlie Infante DNP about patient removing IV site and possible need for Midline, patient is noted to be confused and with hx of Dementia per records. Charlie aware and verbalized that patient does not need IV access at the moment.
--- NOTE | 2020-06-29 12:38 | NUR ---
RN NOTE: Spoke to Gibson Zamudio (son) and informed him about the cancelled status of the planned colonoscopy. Acknowledged and accepted information.
[2020-06-29 16:00] VITALS: BP 149/71
[2020-06-29] MEDS: ASPIRIN EC 81 MG TABLET.DR PO SCH (17:09)
--- NOTE | 2020-06-29 18:49 | NUR ---
RN CLOSING NOTE: Patient ambulatory and walks around. Awake, alert and oriented x1. Confusion and forgetfulness noted, hx of Dementia has been reported. Able to communicate and make needs known. On room air @ 98%. No SOB and not in respiratory distress. Planned colonoscopy was cancelled by Gibson Wallace (son) and Charlie Infante DNP are aware. Currently with no IV site as patient keeps on taking the IV off due to confusion/forgetfulness. Charlie Infante DNP is aware of the situation. Call light in reach. Bed locked, low and at semi lester's position. Side rails up x3. Safety ensured and observed. Will endorse to oncoming shift for [facility].
--- NOTE | 2020-06-29 19:18 | NUR ---
MS RN OPENING NOTES PATIENT AWAKE IN ROOM. A/OX1-2; FORGETFUL. STABLE ON RA; NO S/S OF ACUTE RESPIRATORY DISTRESS; BREATHING IS EVEN AND UNLABORED. NO C/O PAIN. NO IV ACCESS PRESENT AT THIS TIME; PER DAY SHIFT RN ADRIEL LOPEZ AWARE. SAFETY MEASURES IN PLACE AND PATIENT'S NEEDS MET. BED LOCKED, HOB ELEVATED, SIDE RAILS X2, CALL LIGHT WITHIN REACH. WILL CONTINUE TO MONITOR.
[2020-06-29 20:00] VITALS: BP 119/58
--- NOTE | 2020-06-29 20:20 | NUR ---
MS RN NOTES NO IV ACCESS PRESENT AT THIS TIME; PATIENT REFUSING NEW LINE; PER DAY SHIFT NOÉ LOPEZ AWARE. UNABLE TO ADMINISTER SCHEDULED PROTONIX 40 MG IV.
[2020-06-30 06:57] LABS: BASOPHILS % (AUTO) 0.8 % (0.0-2.0); EOSINOPHILS % (AUTO) 1.2 % (0.0-6.0); HEMATOCRIT 40 % (33-45); HEMOGLOBIN 13.4 g/dL (11.5-14.8); LYMPHOCYTES # (AUTO) 0.8 /CMM (0.8-4.8); LYMPHOCYTES % (AUTO) 12.4 % (20.0-44.0); MEAN CORPUSCULAR HGB CONC 33 g/dl (31.0-36.0); MEAN CORPUSCULAR VOLUME 92 fL (82-100); MONOCYTES # (AUTO) 0.6 /CMM (0.1-1.30); MONOCYTES % (AUTO) 9.9 % (2.0-12.0); NEUTROPHILS # (AUTO) 4.8 /CMM (1.8-8.9); NEUTROPHILS % (AUTO) 75.7 % (43.0-81.0); PLATELET COUNT (AUTO) 237 /CMM (150-450); RED BLOOD CELL COUNT(AUTO) 4.39 MIL/uL (4.0-5.2); WHITE BLOOD COUNT (AUTO) 6.3 K/uL (4.3-11.0)
--- NOTE | 2020-06-30 07:02 | NUR ---
MS RN CLOSING NOTES PATIENT SLEEPING, EASY TO AWAKEN. A/OX1-2; FORGETFUL. STABLE ON RA; NO S/S OF ACUTE RESPIRATORY DISTRESS; BREATHING IS EVEN AND UNLABORED. NO C/O PAIN. STILL NO IV ACCESS PRESENT AT THIS TIME. SAFETY MEASURES IN PLACE AND PATIENT'S NEEDS MET. BED LOCKED, HOB ELEVATED, SIDE RAILS X2, CALL LIGHT WITHIN REACH. ENDORSED TO DAY SHIFT RN PLAN OF CARE.
[2020-06-30 07:13] LABS: CALCIUM, SERUM 9.1 mg/dL (8.5-10.1); CREATININE 0.6 mg/dL (0.6-1.3); POTASSIUM 3.7 mmol/L (3.5-5.1)
[2020-06-30] MEDS ORDERED: LEVOTHYROXINE SODIUM 25 MCG TABLET PO SCH (07:30)
[2020-06-30 08:00] VITALS: BP 130/66
[2020-06-30] MEDS: ASPIRIN EC 81 MG TABLET.DR PO SCH (08:44)
[2020-06-30] MEDS: PANTOPRAZOLE 40 MG VIAL IV SCH (08:44)
[2020-06-30] MEDS ORDERED: CHOLECALCIFEROL 1,000 UNIT TABLET (VIT D3) PO SCH (09:00)
[2020-06-30] MEDS ORDERED: MEMANTINE HCL 5 MG TABLET PO SCH (09:00)
[2020-06-30] MEDS ORDERED: ATORVASTATIN 10 MG TABLET PO SCH (09:00)
--- NOTE | 2020-06-30 11:34 | NUR ---
RN MS NOTES PT AWAKE, ALERT AND ORIENTED, FORGETFUL, NO COMPLAINT OF PAIN, NOT IN DISTRESS, AMBULATES IN HER ROOM WITH STEADY GAIT, CALL LIGHT WITHIN REACH, SEEN BY DR. LOPEZ, DISCHARGE ORDER GIVEN, PT INFORMED, DISCHARGE AND MEDICATION INSTRUCTIONS PROVIDED TO PT, VERBALIZED UNDERSTANDING, BELONGINGS ACCOUNTED FOR, ASSISTED TO HOSPITAL LOBBY VIA WHEELCHAIR, PICKED UP BY SON LEONIDAS, LEFT VIA PRIVATE CAR IN STABLE CONDITION.
[2020-06-30] MEDS ORDERED: PANTOPRAZOLE 40 MG TABLET.DR PO SCH (17:00)
== END 2020-06-30 11:34 | disposition home or self-care (01) | DRG 377 ==
LOC: ER 08:39 → MED 10:51
PROVIDERS: ADMIT Nurse Practitioner Acute Care; ATTEND Nurse Practitioner Acute Care
DX: K29.01 Acute gastritis with bleeding (principal); E43 Unspecified severe protein-calorie malnutrition; Z68.1 Body mass index [BMI] 19.9 or less, adult; E78.00 Pure hypercholesterolemia, unspecified; K59.00 Constipation, unspecified; F03.90 Unspecified dementia, unspecified severity, without behavioral disturbance, psychotic disturbance, mood disturbance, and anxiety; Z98.890 Other specified postprocedural states; Z79.899 Other long term (current) drug therapy; Z88.0 Allergy status to penicillin; E03.9 Hypothyroidism, unspecified; E78.5 Hyperlipidemia, unspecified
CPT/HCPCS: 36415; 71045-TC; 80048-TC; 80061-TC; 80076-TC; 83735-TC; 84100-TC; 84443-TC; 84484-TC; 85025-TC; 85730-TC; 86850-TC; 87081-TC; C9113; C9803; G0378; J3010; J7030

== ENCOUNTER 2020-07-04 09:29 | Emergency (ER) | payer BC ==
[~2020-07-04] VITALS: Ht 167.6 cm; Wt 43.1 kg
[~2020-07-04 09:29] MED LIST changes: +LEVO25TA9 PO; +MEMA10TA56 PO; -POLY17PO4 PO; -PSYL0.4C2 PO; -SORBITOL SOLUTION 30 ML PO ONE
--- NOTE | 2020-07-04 09:40 | NUR ---
[id number] home. per ems, c/o "feeling weak"dysuria x 2 days. Patient a/ox4, breathing even and unlabored, no sob noted, needs attended, kept comfortable. Changed into gown, attached to the agricultural adviser.
[2020-07-04 10:13] LABS: APPEARANCE,URINE SL CLOUDY (CLEAR); BILIRUBIN,URINE SMALL (NEGATIVE); BLOOD, URINE MODERATE Ery/uL (NEGATIVE); COLOR,URINE YELLOW (YELLOW); KETONES,URINE TRACE (NEGATIVE); LEUKOCYTE ESTERASE ,URINE MODERATE (NEGATIVE); NITRITE, URINE NEGATIVE (NEGATIVE); PROTEIN,URINE NEGATIVE (NEGATIVE); UGLUCOSE NEGATIVE (NEGATIVE); UROBILINOGEN,URINE 0.2 EU/dL (0.2)
[2020-07-04 10:26] LABS: BASOPHILS % (AUTO) 0.6 % (0.0-2.0); EOSINOPHILS % (AUTO) 0.3 % (0.0-6.0); HEMATOCRIT 43 % (33-45); HEMOGLOBIN 14.3 g/dL (11.5-14.8); LYMPHOCYTES # (AUTO) 0.6 /CMM (0.8-4.8); LYMPHOCYTES % (AUTO) 10.7 % (20.0-44.0); MEAN CORPUSCULAR HGB CONC 33 g/dl (31.0-36.0); MEAN CORPUSCULAR VOLUME 94 fL (82-100); MONOCYTES # (AUTO) 0.5 /CMM (0.1-1.30); NEUTROPHILS # (AUTO) 4.5 /CMM (1.8-8.9); NEUTROPHILS % (AUTO) 79.4 % (43.0-81.0); PLATELET COUNT (AUTO) 265 /CMM (150-450); RED BLOOD CELL COUNT(AUTO) 4.64 MIL/uL (4.0-5.2); WHITE BLOOD COUNT (AUTO) 5.6 K/uL (4.3-11.0)
[2020-07-04] MEDS: IV NS 0.9% 1,000 ML IV ONE (10:27)
[2020-07-04 10:31] LABS: CALCIUM, SERUM 9.3 mg/dL (8.5-10.1); CREATININE 0.8 mg/dL (0.6-1.3); POTASSIUM 3.6 mmol/L (3.5-5.1)
[2020-07-04 10:38] LABS: BACTERIA,URINE Few /HPF (None Seen); SQUAMOUS EPITHELIAL CELL,UR Few /HPF (None Seen); URINE AMORPHOUS URATE Moderate /HPF (None Seen)
[2020-07-04 10:42] LABS: ALBUMIN 3.3 g/dL (3.4-5.0); BILIRUBIN,TOTAL 0.4 mg/dL (0.2-1.0); TOTAL PROTEIN, SERUM 7.3 g/dL (6.4-8.2)
--- NOTE | 2020-07-04 12:00 | NUR ---
Patient a/ox4, breathing even and unlabored, no sob ntoed. Ambulatory with steady gait. IV removed. Catheter intact and site benign. Pressure and 4x4 applied to site. No bleeding noted.
--- NOTE | 2020-07-04 12:31 | NUR ---
INFORMED LEONIDAS SON RE: PRESCRIPTIONS AND DISCHARGE INSTRUCTIONS. Patient discharged to home in stable condition. Written and verbal after care instructions given. Patient verbalizes understanding of instruction. Provided a taxi voucher.
[2020-07-04 12:40] VITALS: BP 149/58
== END 2020-07-04 12:40 | disposition home or self-care (01) ==
LOC: ER 09:33
DX: N39.0 Urinary tract infection, site not specified (principal); K59.00 Constipation, unspecified; R53.83 Other fatigue; I10 Essential (primary) hypertension; E78.5 Hyperlipidemia, unspecified; F03.90 Unspecified dementia, unspecified severity, without behavioral disturbance, psychotic disturbance, mood disturbance, and anxiety; Z98.890 Other specified postprocedural states; Z88.0 Allergy status to penicillin; Z60.2 Problems related to living alone; Z79.82 Long term (current) use of aspirin; Z79.899 Other long term (current) drug therapy
CPT/HCPCS: 36415; 71045; 80053; 81001; 85025; 87086; 93005; 96360; 99285; J7030; 81000-TC

== ENCOUNTER 2020-07-05 00:31 | Emergency (ER) | payer BC ==
[~2020-07-05] VITALS: Ht 165.1 cm; Wt 61.2 kg
--- NOTE | 2020-07-05 00:45 | NUR ---
[id number] FROM HOME C/O GENERALIZED WEAKNESS X3 DAYS. PT AOX3. RR EVEN AND UNLABORED. NO SOB NOTED. NO NVD AT THIS TIME. NO ACUTE DISTRESS NOTED. PT EVALUATED BY DR. QUEZADA. NOTED PT WITH KEFLEX 500MG IN PURSE, STATES SHES ALLERGIC TP PENICILLINS. NO ASE NOTED AT THIS TIME.
[2020-07-05] MEDS ORDERED: NITROFURANTOIN/NITROFURAN MAC 100 MG CAPSULE ONE (00:48)
[2020-07-05] MEDS: NITROFURANTOIN/NITROFURAN MAC 100 MG CAPSULE PO ONE (00:57)
--- NOTE | 2020-07-05 01:21 | NUR ---
UPON DISCHARGE, PT AOX4 WITH PERIODS OF CONFUSION. DR. QUEZADA AWARE, CALLING FAMILY AT THIS TIME.
--- NOTE | 2020-07-05 01:24 | NUR ---
MULTIPLE ATTEMPTS TO CONTACT FAMILY, NO ANSWER. LEFT MESSAGE, WILL FOLLOW UP JAVAN (DAUGHTER) [phone] LEONIDAS (SON) [phone]
--- NOTE | 2020-07-05 01:40 | NUR ---
SPOKE TO PT SON LEONIDAS, AWARE PT CLEARED FOR DISCHARGE, ON THE WAY TO PICK PT UP.
--- NOTE | 2020-07-05 02:20 | NUR ---
PT CLEARED FOR DISCHARGE PER DR. QUEZADA. PT PICKED UP BY SON LEONIDAS. PT SON RECEIVED DISCHARGE INSTRUCTIONS. PT SON VERBALIZED UNDERSTANDING. PT AMBULATORY WITH STEADY GAIT, HOWEVER WHEEL CHAIRED TO LOBBY PER PT REQUEST.
[2020-07-05 02:29] VITALS: BP 124/68
== END 2020-07-05 02:30 | disposition home or self-care (01) ==
LOC: ER 00:33
DX: N39.0 Urinary tract infection, site not specified (principal); R53.83 Other fatigue; F03.90 Unspecified dementia, unspecified severity, without behavioral disturbance, psychotic disturbance, mood disturbance, and anxiety; I10 Essential (primary) hypertension; E78.5 Hyperlipidemia, unspecified; Z98.890 Other specified postprocedural states; Z88.0 Allergy status to penicillin; Z60.2 Problems related to living alone; Z79.82 Long term (current) use of aspirin; Z79.899 Other long term (current) drug therapy

== ENCOUNTER 2020-07-06 00:56 | Inpatient (IN) | payer BC ==
[~2020-07-06] VITALS: Ht 165.1 cm; Wt 42.6 kg
[~2020-07-06 00:56] MED LIST changes: +POLY17PO4 PO; +PSYL0.4C2 PO
--- NOTE | 2020-07-06 00:58 | NUR ---
PT [id number] FROM HOME C/O ABD PAIN, SEEN HERE MULTIPLE TIMES DX WITH UTI WITH ATB PRESCRIPTION. PT AAOX2, VSS, RESPIRATIONS EVEN AND UNLABORED ON RA W/ NAD NOTED. PT CONNECTED TO THE MONITOR AND POX
--- NOTE | 2020-07-06 01:15 | NUR ---
ROADS AND PARKING LOTS SWEEPER OPERATOR AT BEDSIDE FOR BLOOD DRAW
[2020-07-06] MEDS ORDERED: LEVOFLOXACIN 500 MG /D5W 100ML 100 ML IV ONE (01:17)
[2020-07-06 01:24] LABS: EOSINOPHILS % (AUTO) 1.4 % (0.0-6.0)
[2020-07-06 01:28] LABS: APPEARANCE,URINE Clear (CLEAR); BILIRUBIN,URINE SMALL (NEGATIVE); BLOOD, URINE Small Ery/uL (NEGATIVE); COLOR,URINE Orange (YELLOW); KETONES,URINE Trace (NEGATIVE); LEUKOCYTE ESTERASE ,URINE Negative (NEGATIVE); NITRITE, URINE Negative (NEGATIVE); PH,URINE 5.5 (5.0-8.0); PROTEIN,URINE Negative (NEGATIVE); UGLUCOSE Negative (NEGATIVE); UROBILINOGEN,URINE 0.2 EU/dL (0.2)
[2020-07-06] MEDS ORDERED: LEVOFLOXACIN 500 MG /D5W 100ML 500 MG/100 ML PIGGYBACK IV ONE (01:30)
--- NOTE | 2020-07-06 01:33 | NUR ---
URINE COLLECTED AND SENT TO LAB
[2020-07-06 01:35] LABS: BASOPHILS % (AUTO) 0.6 % (0.0-2.0); HEMATOCRIT 43 % (33-45); HEMOGLOBIN 14.2 g/dL (11.5-14.8); LYMPHOCYTES # (AUTO) 1.1 /CMM (0.8-4.8); LYMPHOCYTES % (AUTO) 14.6 % (20.0-44.0); MEAN CORPUSCULAR HGB CONC 33 g/dl (31.0-36.0); MEAN CORPUSCULAR VOLUME 94 fL (82-100); MONOCYTES % (AUTO) 13.2 % (2.0-12.0); NEUTROPHILS # (AUTO) 5.1 /CMM (1.8-8.9); NEUTROPHILS % (AUTO) 70.2 % (43.0-81.0); PLATELET COUNT (AUTO) 101 /CMM (150-450); RED BLOOD CELL COUNT(AUTO) 4.61 MIL/uL (4.0-5.2); WHITE BLOOD COUNT (AUTO) 7.3 K/uL (4.3-11.0)
[2020-07-06 01:37] LABS: ALBUMIN 3.3 g/dL (3.4-5.0); BILIRUBIN,DIRECT 0.1 mg/dL (0.0-0.2); BILIRUBIN,TOTAL 0.4 mg/dL (0.2-1.0); CREATININE 0.8 mg/dL (0.6-1.3); TOTAL PROTEIN, SERUM 7.5 g/dL (6.4-8.2)
[2020-07-06 01:49] LABS: BACTERIA,URINE None seen /HPF (None Seen); CALCIUM OXALATE CRYSTALS,UR Moderate /HPF (None Seen); SQUAMOUS EPITHELIAL CELL,UR Few /HPF (None Seen)
[2020-07-06 01:50] LABS: URINE AMORPHOUS URATE Few /HPF (None Seen)
--- NOTE | 2020-07-06 01:52 | NUR ---
COVID SWAB SENT TO LAB
[2020-07-06 01:56] LABS: POTASSIUM 3.7 mmol/L (3.5-5.1)
[2020-07-06] MEDS ORDERED: ONDANSETRON HCL/PF 4 MG/2 ML VIAL IVP PRN (02:00)
[2020-07-06] MEDS ORDERED: MAGNESIUM HYDROXIDE 30 ML UDC PO PRN (02:00)
[2020-07-06] MEDS ORDERED: LORAZEPAM INJ 2 MG/ML VIAL IV PRN (02:00)
[2020-07-06] MEDS ORDERED: MORPHINE SULFATE INJ 2 MG/ML DISP.SYRIN IV PRN (02:00)
[2020-07-06] MEDS ORDERED: MAG HYDROX/AL HYDROX/SIMETH 30 ML UDC PO PRN (02:00)
[2020-07-06] MEDS ORDERED: Z GUARD REMEDY 2 OZ OINT TP PRN (02:00)
[2020-07-06] MEDS ORDERED: TEMAZEPAM 15 MG CAPSULE PO PRN (02:00)
[2020-07-06] MEDS ORDERED: HYDROCODONE/APAP 5/325MG TABLET PO PRN (02:00)
[2020-07-06] MEDS ORDERED: ACETAMINOPHEN 325 MG TABLET PO PRN (02:00)
[2020-07-06] MEDS ORDERED: HYDROCODONE/APAP 5/325MG TABLET ONE (02:43)
[2020-07-06] MEDS ORDERED: HYDROCODONE/APAP 5/325MG TABLET PO ONE (03:00)
--- NOTE | 2020-07-06 03:11 | NUR ---
REPORT GIVEN TO NOÉ HURLEY FOR [facility]
--- NOTE | 2020-07-06 03:38 | NUR ---
PT TRANSFERRED TO ROOM IN STABLE CONDITION
--- NOTE | 2020-07-06 03:40 | NUR ---
RN NOTE PT ARRIVED TO UNIT A/O X1, CONFUSED. CAN SPAEAK IN CLEAR SENTENCES. DENIES ANY PAIN AT THIS TIME. C/O BURNING UPON URINATION. V/S 135/73, P 71. RR 19. TEMP 97.9. IV TO RFA PATENT INTACT AND FLUSHING WELL. PT ON ROOM AIR. PT CLEANED AND MADE COMFORTABLE. BED LOCKED AND IN LOWEST POSITION, BED ALARM ON, CALL LIGHT WITHIN REACH WILL CONT TO MONITOR PT.
[2020-07-06 04:00] VITALS: BP 135/73
[2020-07-06] MEDS: IV NS 0.9% 1,000 ML IV PRN ×2 (04:02→18:06)
--- NOTE | 2020-07-06 07:31 | NUR ---
RN NOTE PT STABLE, CURRENTLY AWAKE,REMAINS CONFUSED. NS INFUSING AT 75 ML/HR, CALL LIGHT WITHIN REACH,BED LOCKED IN LOWEST POSITION, ENDORSED TO AM RN TO F/U DVT PUMPS VTE SCORE 2.
--- NOTE | 2020-07-06 08:09 | NUR ---
RN MS NOTE: PT RECEIVED EYES OPEN, A/OX1. NO SIGNS OF RESPIRATORY DISTRESS OR SOB, ON RA. PT IS BEDREST WITH INTACT SKIN. PT HAS RFA #18 RUNNING NS @ 75 ML/HR. BED IN LOCKED LOWEST POSITION. CALL LIGHT WITHIN REACH. ALL SAFETY MEASURES IN PLACE. WILL CONTINUE TO MONITOR CLOSELY.
[2020-07-06] MEDS ORDERED: ENOXAPARIN SODIUM 40 MG/0.4 ML DISP.SYRIN SQ ONE (09:00)
[2020-07-06] MEDS: CHOLECALCIFEROL 1,000 UNIT TABLET (VIT D3) PO SCH (09:51)
[2020-07-06] MEDS: LEVOTHYROXINE SODIUM 25 MCG TABLET PO SCH (09:51)
[2020-07-06] MEDS: MEMANTINE HCL 5 MG TABLET PO SCH (09:51)
[2020-07-06] MEDS: ATORVASTATIN 10 MG TABLET PO SCH (09:51)
[2020-07-06] MEDS: ASPIRIN EC 81 MG TABLET.DR PO SCH (09:52)
[2020-07-06] MEDS ORDERED: ENOXAPARIN SODIUM 30 MG/0.3 ML DISP.SYRIN SQ ONE (10:30)
[2020-07-06 11:15] LABS: URINE SODIUM, RANDOM 48 mmol/l (40-220)
[2020-07-06 11:26] LABS: OSMOLALITY,URINE 870 mOS/kg (340-1090)
[2020-07-06 12:00] VITALS: BP 134/69
--- NOTE | 2020-07-06 15:25 | NUR ---
RN MS NOTE: DVT PUMPS ORDERED. CENTRAL SUPPLY CLOSED. WILL ENDORSE TO ONCOMING RN TO CALL CENTRAL FOR PUMPS.
--- NOTE | 2020-07-06 15:49 | NUR ---
RN MS NOTE: PT REPORTS NAUSEA, NO EMESIS. PRN ZOFRAN GIVEN ORDERED.
--- NOTE | 2020-07-06 19:32 | NUR ---
RN MS NOTE: NO CHANGE IN PT CONDITION. PT AWAKE, A/OX1. PT ON RA O2 SATURATION 97%. NO RESPIRATORY DISTRESS OR SOB. PT IS AMBULATORY WITH STAND-BY ASSIST. PT RFA #18 RUNNING NS AT 75 ML/HOUR. PT CALL LIGHT WITHIN REACH. BED IN LOCKED LOWEST POSITION. ALL SAFETY MEASURES IN PLACE. REPORT GIVEN TO ONCOMING RN FOR [facility].
[2020-07-06 20:00] VITALS: BP 111/71
--- NOTE | 2020-07-06 20:00 | NUR ---
RN NOTE PT RECEIVED IN BED A/A/O X1. PT IS ON ROOM AIR SATING 98%, HAS UNLABORED BREATHING, SAFETY MEASURES IN PLACE BED AT LOWEST POSITION, LOCKED, SIDE RAILS UP X2, CALL LIGHT IN REACH.
[2020-07-07 04:00] VITALS: BP 149/79
[2020-07-07] MEDS: IV NS 0.9% 1,000 ML IV PRN ×2 (05:30→19:51)
--- NOTE | 2020-07-07 07:22 | NUR ---
RN NOTE PT REMAINED STABLE DURING MY SHIFT. REPORT GIVEN TO INCOMING SHIFT FOR [facility].
[2020-07-07 07:53] LABS: BASOPHILS % (AUTO) 0.6 % (0.0-2.0); EOSINOPHILS % (AUTO) 0.8 % (0.0-6.0); HEMATOCRIT 41 % (33-45); HEMOGLOBIN 13.6 g/dL (11.5-14.8); LYMPHOCYTES # (AUTO) 0.8 /CMM (0.8-4.8); LYMPHOCYTES % (AUTO) 12.7 % (20.0-44.0); MEAN CORPUSCULAR HGB CONC 33 g/dl (31.0-36.0); MEAN CORPUSCULAR VOLUME 92 fL (82-100); MONOCYTES # (AUTO) 0.6 /CMM (0.1-1.30); MONOCYTES % (AUTO) 8.5 % (2.0-12.0); NEUTROPHILS # (AUTO) 5.1 /CMM (1.8-8.9); NEUTROPHILS % (AUTO) 77.4 % (43.0-81.0); PLATELET COUNT (AUTO) 276 /CMM (150-450); RED BLOOD CELL COUNT(AUTO) 4.45 MIL/uL (4.0-5.2); WHITE BLOOD COUNT (AUTO) 6.6 K/uL (4.3-11.0)
[2020-07-07 08:00] VITALS: BP 130/56
--- NOTE | 2020-07-07 08:00 | NUR ---
MS RN NOTES RECEIVED PATIENT IN BED. A/O X1. NO SOB OR ANY CONGESTION. O2 SAT 97% IN ROOM AIR. DENIES ANY PAIN AT THIS TIME. WITH RFA #18G PATENT AND INTACT, FLUSHING WELL. ON IV NS @ 75 ML. BED LOCKED AND IN LOWEST POSITION. SAFETY MEASURES IMPLEMENTED. CALL LIGHT WITHIN REACH.
[2020-07-07 08:02] LABS: CALCIUM, SERUM 8.9 mg/dL (8.5-10.1); CARBON DIOXIDE 29 mmol/L (21-32); CHLORIDE 104 mmol/L (98-107); CREATININE 0.4 mg/dL (0.6-1.3); GLUCOSE 91 mg/dL (74-106); PHOSPHORUS 2.9 mg/dL (2.5-4.9); POTASSIUM 3.4 mmol/L (3.5-5.1); SODIUM SERUM 139 mmol/L (136-145); UREA NITROGEN, BLOOD 4 mg/dL (7-18)
[2020-07-07] MEDS: MEMANTINE HCL 5 MG TABLET PO SCH (08:35)
[2020-07-07] MEDS: ASPIRIN EC 81 MG TABLET.DR PO SCH (08:35)
[2020-07-07] MEDS: LEVOTHYROXINE SODIUM 25 MCG TABLET PO SCH (08:35)
[2020-07-07] MEDS: CHOLECALCIFEROL 1,000 UNIT TABLET (VIT D3) PO SCH (08:35)
[2020-07-07] MEDS: ATORVASTATIN 10 MG TABLET PO SCH (08:36)
[2020-07-07 08:41] LABS: URIC ACID 2.2 mg/dL (2.6-7.2)
[2020-07-07] MEDS ORDERED: POTASSIUM CHLORIDE 20 MEQ TAB.PRT.SR PO SCH (10:00)
--- NOTE | 2020-07-07 11:00 | NUR ---
MS RN NOTES SPOKE TO SCARLET PATIENTS NIECE PROVIDED UPDATE ON PATIENTS STATUS. SCARLET REQUESTING TO SPEAK TO . DR. JACKSON MADE AWARE PROVIDED PHONE NUMBER. WILL CONTINUE TO MONITOR.
[2020-07-07] MEDS: ENSURE ENLIVE 237 ML LIQUID (VANILLA) PO SCH ×2 (14:08→17:00)
[2020-07-07 16:00] VITALS: BP 110/50
--- NOTE | 2020-07-07 19:35 | NUR ---
MS RN NOTES PATIENT IN BED RESTING NO SOB OR ACUTE DISTRESS NOTED. ALL DUE MEDICATIONS ADMINISTERED. ALL NEEDS MET. NO ACUTE CHANGES NOTED DURING AM SHIFT. ENDORSED CARE TO PM SHIFT.
--- NOTE | 2020-07-07 20:00 | NUR ---
RN NOTE PT RECEIVED IN BED A/A/O X1. PT IS ON ROOM AIR SATING 98%, PT HAS UNLABORED BREATHING, SAFETY MEASURES IN PLACE BED AT LOWEST POSITION, LOCKED, SIDE RAILS UP X2, CALL LIGHT IN REACH.
[2020-07-08 04:00] VITALS: BP 138/65
[2020-07-08 06:12] LABS: CARBON DIOXIDE 29 mmol/L (21-32); CHLORIDE 104 mmol/L (98-107); CREATININE 0.6 mg/dL (0.6-1.3); GLUCOSE 96 mg/dL (74-106); POTASSIUM 3.3 mmol/L (3.5-5.1); SODIUM SERUM 140 mmol/L (136-145); UREA NITROGEN, BLOOD 8 mg/dL (7-18)
--- NOTE | 2020-07-08 07:20 | NUR ---
RN NOTE PT REMAINED STABLE, NO ACUTE CHANGES REPORT GIVEN TO INCOMING SHIFT.
--- NOTE | 2020-07-08 07:25 | NUR ---
PT IN BED AWAKE AND A/O X1 TO PERSON. FORGETFUL AND POOR HISTORIAN. DENIES PAIN OR SOB. RESPIRATIONS EVEN UNLABORED AND SKIN WARM AND FLUSHED. SKIN INTACT. REPORTS POOR APPETITE. NEW IV INSERTED R HAND FLUSHED INTACT DRESSING INTACT RUNNING NS ORDERED. PT PULLED OUT PREVIOUS R FA IV. APPLIED PRESSURE AND NO SIGNS OF BLEEDING. TOLERATED WELL. WILL CONTINUE TO IMPLEMENTED ORDERS, MONITOR PT FOR CHANGES, AND REPORT NEEDED TO MD. WILL CONTINUE PLAN OF CARE AND REORIENT PATIENT NEEDED. ALL HOSPITAL POLICY SAFETY PRECAUTIONS IMPLEMENTED.
[2020-07-08 08:00] VITALS: BP 132/57
[2020-07-08] MEDS: LEVOTHYROXINE SODIUM 25 MCG TABLET PO SCH (08:59)
[2020-07-08] MEDS: CHOLECALCIFEROL 1,000 UNIT TABLET (VIT D3) PO SCH (08:59)
[2020-07-08] MEDS: ASPIRIN EC 81 MG TABLET.DR PO SCH (08:59)
[2020-07-08] MEDS: MEMANTINE HCL 5 MG TABLET PO SCH (08:59)
[2020-07-08] MEDS: ENSURE ENLIVE 237 ML LIQUID (VANILLA) PO SCH ×2 (09:00→18:05)
[2020-07-08] MEDS: ATORVASTATIN 10 MG TABLET PO SCH (09:00)
[2020-07-08] MEDS ORDERED: POTASSIUM CHLORIDE 20 MEQ TAB.PRT.SR PO ONE (10:00)
[2020-07-08 16:00] VITALS: BP 115/43
--- NOTE | 2020-07-08 18:20 | NUR ---
PT DISCHARGED. DAUGHTER PICKED UP PATIENT IN PRIVATE VEHICLE. PT TAKEN TO DAUGHTER VIA WHEELCHAIR. ALL BELONGINGS BROUGHT AND ALL DISCHARGE TEACHING PROVIDED TO DAUGHTER AND PATIENT. IV REMOVED WITH NO SIGNS OF BLEEDING. PT TOLERATED WELL, STABLE, AMBULATES STEADILY.
== END 2020-07-08 18:17 | disposition home or self-care (01) | DRG 689 ==
LOC: ER 00:59 → MEDSG1 03:12
PROVIDERS: ADMIT Internal Medicine; ATTEND Internal Medicine
DX: N39.0 Urinary tract infection, site not specified (principal); E43 Unspecified severe protein-calorie malnutrition; G93.41 Metabolic encephalopathy; E87.1 Hypo-osmolality and hyponatremia; Z68.1 Body mass index [BMI] 19.9 or less, adult; E03.9 Hypothyroidism, unspecified; I10 Essential (primary) hypertension; F03.90 Unspecified dementia, unspecified severity, without behavioral disturbance, psychotic disturbance, mood disturbance, and anxiety; R62.7 Adult failure to thrive; E78.5 Hyperlipidemia, unspecified; E86.1 Hypovolemia; E88.09 Other disorders of plasma-protein metabolism, not elsewhere classified; F43.22 Adjustment disorder with anxiety
CPT/HCPCS: 36415; 80048-TC; 80076-TC; 81000-TC; 83735-TC; 83935-TC; 84100-TC; 84300-TC; 84443-TC; 84550-TC; 85025-TC; 87081-TC; 97116-TC; 97530-TC; C9803; G0378; J1650; J1956; J2405; J7030